=== PATIENT | male | born 1990 | race Caucasian/White ===

== ENCOUNTER 2019-10-14 08:37 | Emergency (ER) | payer BC ==
[2019-10-14 09:38] VITALS: BP 116/62
--- NOTE | 2019-10-14 10:36 | UC ---
Syncope/New Syncope HPI - HPI Summary HPI Summary: PATIENT REPORTS HE WOKE UP AT 2 AM WITH EXTREME DIZZINESS TO THE POINT WHERE HE WAS STUMBLING WITH AMBULATION. STRUCK HIS HEAD ON THE CORNER OF A WALL A RESULT OF BEING SO DIZZY. CALLED HIS (WHO LIVES IN [facility]) AND STATES HE HAD A BRIEF EPISODE OF SYNCOPE. HE THINKS HE WAS ONLY OUT FOR A COUPLE OF SECONDS.. HE REPORTS HE HAS SOME MILD CONGESTION AND CHILLS. NOW HAS HEADACHE. NO PREVIOUS SIMILAR SYNCOPAL EPISODES. - History Of Current Complaint Stated Complaint: CHILLS,CONGESTION,DIZZINESS,ACHES Time Seen by Provider: 10/14/19 09:00 Hx Obtained From: Patient Onset/Duration: Sudden Onset, Resolved Activity At Onset: At Rest Context: Unwitnessed, Loss Of Consciousness Associated Head Trauma: Yes Pain Intensity: 3 Pain Scale Used: 0-10 Numeric Aggravating Factor(s): Nothing Alleviating Factor(s): Spontaneous Resolution Associated Signs And Symptoms: Positive: Dizzy, Headache. Negative: Chest Pain , Palpitations, Seizure, Shortness Of Breath, Vomiting - Allergies/Home Medications Allergies/Adverse Reactions: Allergies Allergy/AdvReac Type Severity Reaction Status Date / Time No Known Allergies Allergy Verified 10/14/19 09:38 Home Medications: Home Medications Metoprolol Tartrate TAB* [Lopressor TAB*] 1 tab PO DAILY WITH MEAL 10/14/19 [ History Confirmed 10/14/19] Venlafaxine EXT RELEASE CAP* [Effexor Xr CAP*] 1 tab PO DAILY 10/14/19 [History Confirmed 10/14/19] PMH/Surg Hx/FS Hx/Imm Hx Cardiovascular History: Hypertension, Other - HEART MURMUR Psychological History: Anxiety - Surgical History Surgical History: None - Family History Known Family History: Positive: Cardiac Disease - Social History Alcohol Use: None Substance Use Type: None Smoking Status (MU): Never Smoked Tobacco Review of Systems All Other Systems Reviewed And Are Negative: Yes Constitutional: Positive: Chills ENT: Positive: Nasal Discharge Respiratory: Positive: Negative Cardiovascular: Positive: Negative Gastrointestinal: Positive: Negative Musculoskeletal: Negative: Myalgia Neurological/Mental Status: Positive: Headache, Other - DIZZY Physical Exam Triage Information Reviewed: Yes Appearance: Well-Appearing, No Pain Distress, Well-Nourished Vital Signs: Initial Vital Signs Temp 99.4 F 10/14/19 09:30 Pulse 115 10/14/19 09:30 Resp 18 10/14/19 09:30 BP 116/62 10/14/19 09:30 Pulse Ox 97 10/14/19 09:30 Vital Signs Reviewed: Yes Eyes: Positive: Conjunctiva Clear ENT: Positive: Hearing grossly normal, Pharynx normal, TMs normal Neck: Positive: Supple, Nontender, No Lymphadenopathy Respiratory Exam: Normal Cardiovascular: Positive: Tachycardia Abdomen Description: Positive: Soft Musculoskeletal: Positive: No Edema Neurological: Positive: Alert, Other: - CN II-XII GROSSLY INTACT BILATERALLY. RAPID ALTERNATING MOVEMENTS INTACT. NEG PRONATOR DRIFT. NEG ROMBERG. 5/5 STRENGTH. HEEL TO WHITMORE INTACT BILATERALLY. TANDEM GAIT INTACT. FINGER TO NOSE INTACT. Psychological: Positive: Age Appropriate Behavior Skin: Negative: Rashes Diagnostics - EKG Cardiac Rate: Tachycardia - 105BPM Cardiac Rhythm: Sinus: Normal ST Segment: Other - RBBB Syncope Course/Dx - Course Course Of Treatment: I'M CONCERNED ABOUT THE PATIENT'S SUDDEN ONSET OF DIZZINESS AND SYNCOPE. HE REQUIRES A HIGHER LEVEL OF SERVICE THAN WHAT IS AVAILABLE IN THE URGENT CARE. TO THE [facility] [place] ER BY PRIVATE CAR. PT OFFERED TRANSPORT TO THE ER BY AMBULANCE BUT DECLINES. ADVISED THAT BY NOT TRAVELING IN A MONITORED SETTING HE COULD BE RISKING WORSENING OF HIS CONDITION THAT COULD POSE A THREAT TO HIS LIFE, HEALTH AND MEDICAL SAFETY. HE VERBALIZES UNDERSTANDING AND CONTINUES TO DECLINE AMBULANCE TRANSFER. - Differential Dx/Diagnosis Provider Diagnosis: Syncope, Dizziness Discharge ED - Sign-Out/Discharge Documenting (check all that apply): Patient Departure All imaging exams completed and their final reports reviewed: No Studies - Discharge Plan Condition: Stable Disposition: TRANS [facility] Patient Education Materials: Syncope (ED), Dizziness (ED) Referrals: [facility] [Outside] - If Needed Additional Instructions: I AM CONCERNED ABOUT YOUR SUDDEN DIZZINESS AND POSSIBLE SYNCOPAL EPISODE. GO DIRECTLY TO THE [facility] ER FROM HERE FOR FURTHER EVALUATION. YOU HAVE DECLINED TRANSFER TO THE ER BY AMBULANCE. BE ADVISED THAT BY NOT TRAVELING IN A MONITORED SETTING YOU COULD BE RISKING WORSENING OF YOUR CONDITION THAT COULD POSE A THREAT TO YOUR LIFE, HEALTH AND MEDICAL SAFETY. CALL THE NUMBER BELOW FOR ASSISTANCE IN ESTABLISHING WITH A PCP An additional resource available to assist in finding the appropriate physician for your health care needs is the [facility] ([facility]). You may contact them by calling [phone]. - Billing Disposition and Condition Condition: STABLE Disposition: Trans Higher Lvl of Care Fac
== END 2019-10-14 10:37 | disposition short-term general hospital (02) ==
LOC: UCEAST 08:37
DX: R55 Syncope and collapse (principal); I10 Essential (primary) hypertension; F41.9 Anxiety disorder, unspecified; R01.1 Cardiac murmur, unspecified; Z79.899 Other long term (current) drug therapy
CPT/HCPCS: 93005; 99202; G0463